=== PATIENT | female | born 1975 | race Caucasian/White ===

== ENCOUNTER 2021-06-14 14:07 | Inpatient (IN) | payer OTHER ==
[~2021-06-14] VITALS: Ht 162.6 cm; Wt 81.6 kg
[2021-06-14] MEDS ORDERED: FAMOTIDINE20 MG PO (17:33)
[2021-06-14] MEDS ORDERED: HYDROCODON-ACE1 EAC6 PO (17:33)
[2021-06-14] MEDS ORDERED: NEURONTIN400 MG PO (17:33)
[2021-06-14 17:34] LABS: HEMOGLOBIN 13.8 gm/dl (12.3-15.3); RED BLOOD COUNT 5.08 M/UL (4.00-5.10); WHITE BLOOD COUNT 11.9 K/UL (4.5-11.0)
[2021-06-14 18:37] LABS: BUN/CREATININE RATIO 13 (0-10)
[2021-06-17] MEDS ORDERED: HYDROCODON-ACE1 EAC6 PO (10:22)
[2021-06-17] MEDS ORDERED: ENOXAPARIN40 MG/0.4 SC (10:22)
== END 2021-06-17 13:21 | disposition home or self-care (01) | DRG 494 ==
LOC: ER1 14:07 → CDU 17:07 → M/S 17:07
PROVIDERS: Emergency Medicine; Orthopaedic Surgery; ADMIT Internal Medicine Infectious Disease
PROC: 0QSK05Z Reposition Left Fibula with External Fixation Device, Open Approach (ICD-10-PCS; principal; 2021-06-15 12:30)
DX: S82.852A Displaced trimalleolar fracture of left lower leg, initial encounter for closed fracture (principal); W18.30XA Fall on same level, unspecified, initial encounter; Z20.822 Contact with and (suspected) exposure to COVID-19; G89.29 Other chronic pain; K21.9 Gastro-esophageal reflux disease without esophagitis; I10 Essential (primary) hypertension; Y92.009 Unspecified place in unspecified non-institutional (private) residence as the place of occurrence of the external cause; Z90.49 Acquired absence of other specified parts of digestive tract; Z90.710 Acquired absence of both cervix and uterus; Z88.6 Allergy status to analgesic agent; Z88.0 Allergy status to penicillin; Z88.2 Allergy status to sulfonamides; Z80.51 Family history of malignant neoplasm of kidney; Z82.49 Family history of ischemic heart disease and other diseases of the circulatory system; Z86.73 Personal history of transient ischemic attack (TIA), and cerebral infarction without residual deficits
CPT/HCPCS: 27818; 71045; 73590; 73600; 73610; 73630; 73700; 76000; 80053; 85025; 94640; 94664; 94760; 96374; 96376; 97161; 97530; 99284; C1713; J0690; J1100; J1170; J1650; J2001; J2250; J2270; J2405; J2704; J2795; J3010; J7030; J7040; J7120; U0002

== ENCOUNTER → 2021-07-03 | Day surgery (SDC) | payer OTHER ==
[~2021-07-03] MED LIST: ENOXAPARIN40 MG/0.4 SC; FAMOTIDINE20 MG PO; HYDROCODON-ACE1 EAC6 PO; NEURONTIN400 MG PO; NEURONTIN600 MG PO; OXYCODONE HCL5 M1 PO; OXYCODONE HYDROC5 GM MC
[2021-07-03 07:42] LABS: BUN/CREATININE RATIO 13 (0-10)
== END | disposition home or self-care (01) ==
LOC: OR 06:26
PROVIDERS: Orthopaedic Surgery
DX: S82.852A Displaced trimalleolar fracture of left lower leg, initial encounter for closed fracture (principal); S93.432A Sprain of tibiofibular ligament of left ankle, initial encounter; K21.9 Gastro-esophageal reflux disease without esophagitis; I10 Essential (primary) hypertension; Z90.710 Acquired absence of both cervix and uterus; Z88.6 Allergy status to analgesic agent; Z88.0 Allergy status to penicillin; Z88.2 Allergy status to sulfonamides; Z20.822 Contact with and (suspected) exposure to COVID-19; Z87.820 Personal history of traumatic brain injury; X58.XXXA Exposure to other specified factors, initial encounter; Y92.9 Unspecified place or not applicable
CPT/HCPCS: 36415; 73610; 76000; 80048; C1713; J0690; J1100; J1170; J2001; J2250; J2405; J2704; J2710; J2795; J3010; J7120; U0002

== ENCOUNTER → 2022-03-01 | Outpatient (CLI) | payer OTHER ==
[2022-03-01 12:56] LABS: HEMOGLOBIN 13.2 gm/dl (12.3-15.3); RED BLOOD COUNT 4.75 M/UL (4.00-5.10); WHITE BLOOD COUNT 5.9 K/UL (4.5-11.0)
== END ==
LOC: LAB 12:18
PROVIDERS: Nurse Practitioner Primary Care
DX: M25.472 Effusion, left ankle (principal); Z98.890 Other specified postprocedural states
CPT/HCPCS: 36415; 82565; 84520; 85027; 85652; 86140

== ENCOUNTER → 2022-03-12 | Outpatient (CLI) | payer OTHER | LOC: CT 15:30 | DX: M25.572 Pain in left ankle and joints of left foot (principal); M25.472 Effusion, left ankle; M19.072 Primary osteoarthritis, left ankle and foot | CPT/HCPCS: 73702; Q9967 ==